=== PATIENT | male | born 1980 | race Caucasian/White ===

== ENCOUNTER 2023-10-25 05:08 | Emergency (ER) | payer OTHER, SELFPAY ==
--- NOTE | 2023-10-25 | ECG_ITS ---
Test Reason : CHEST PAIN Blood Pressure : / mmHG Vent. Rate : 067 BPM Atrial Rate : 067 BPM P-R Int : 136 ms QRS Dur : 084 ms QT Int : 386 ms P-R-T Axes : 073 069 041 degrees QTc Int : 407 ms Normal sinus rhythm with sinus arrhythmia Normal ECG When compared with ECG of 01-SEP-2016 22:35, No significant change was found Referred By: Generic ED Physician Electronically Signed By:Conner Sharpe
--- NOTE | ~2023-10-25 | XR_ITS ---
EXAMINATION: XR CHEST CLINICAL INFORMATION: Chest injury. Pain. COMPARISON: 09/01/2016. TECHNIQUE: Frontal view of the chest was obtained. FINDINGS: No significant abnormality is noted involving the heart, lungs, mediastinum, bony thorax or soft tissues. XR/XR chest 1V IMPRESSION: Unremarkable examination.
[2023-10-25 05:23] VITALS: BP 122/78; PULSE 68; RESP 18; TEMP 36.7; O2SAT 99; BMI 25.8
[2023-10-25 05:29] LABS: Basophils Percent Auto 0.5 % (0-2); Eosinophils Absolute Auto 0.1 X10*3/uL (0.0-0.4); Eosinophils Percent Auto 2.4 % (0-4); Hematocrit 44.8 % (42.0-52.0); Hemoglobin 15.5 g/dl (14.0-18.0); Imm Gran Abs Auto 0.01 X10*3/uL (0.00-0.03); Imm Gran Pct Auto 0.2 % (0.0-0.4); Lymphocytes Percent Auto 34.9 % (20-40); MANUAL DIFF FLAG NO; Mean Corpuscular HGB Conc 34.6 g/dl (31.0-36.0); Mean Corpuscular Hemoglobin 31.8 pg (27.0-33.0); Mean Platelet Volume 9.6 fL (9.4-12.4); Monocytes Absolute Auto 0.7 X10*3/uL (0.1-1.2); Monocytes Percent Auto 11.7 % (2-11); Neutrophils Absolute Auto 2.9 x10*3/uL (2.0-8.3); Neutrophils Percent Auto 50.3 % (45-73); Platelet Count 217 X10*3/uL (160-400); Red Blood Count 4.87 X10*6/uL (4.60-5.80); Red Cell Distribution Width 12.3 % (11.0-16.0); White Blood Count 5.7 X10*3/uL (4.8-10.8)
[2023-10-25 05:45] LABS: Alanine Aminotransferase 33 U/L (0-40); Albumin Level 4.2 g/dL (3.5-5.0); Alkaline Phosphatase 44 U/L (39-117); Anion Gap 13 (12-20); Aspartate Amino Transferase 23 U/L (5-37); Bilirubin Total 0.6 mg/dL (0.0-1.0); Blood Urea Nitrogen 12 mg/dL (9-16); Calcium 10.4 mg/dL (8.4-10.2); Carbon Dioxide 26 mmol/L (22-29); Chloride 107 mmol/L (96-108); Creatinine Clr Calc Pharmacy 109.7; Estimated Glomerular Filt Rate > 60; Glucose Random 123 mg/dL (60-115); Potassium 4.1 mmol/L (3.3-5.1); Sodium 142 mmol/L (135-145); Total Protein 6.9 g/dL (6.5-8.0)
[2023-10-25 06:01] LABS: Troponin-I High Sensitivity < 2.7 ng/L (<3.5-35.0)
--- NOTE | 2023-10-25 06:47 | ED_ITS ---
HPI - Chest Pain General Chief Complaint: Chest Pain Stated Complaint: Chest pain from being hit by hockey puck Time Seen by Provider: 10/25/23 06:47 Source: patient Mode of arrival: ambulatory Limitations: no limitations History of Present Illness HPI narrative: Patient is a 43 year old assigned male at with no reported medical history presenting to the emergency department today with right sided chest pain after being struck with a hockey puck. 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 Patient states that he continues to have pain on that side that worsens with movement and breathing. Patient denies any dizziness, lightheadedness, abdominal pain, nausea, vomiting, fever, chills, blurry vision, double vision, loss of vision, difficulty breathing, shortness of breath, back pain, night sweats, pain with urination, increased urinary frequency, increased urinary urgency, blood in his urine or stool, syncope or a near syncopal episode, recent trauma or falls, bowel incontinence, bladder incontinence, bowel retention, bladder retention, or any other complaints at this time. Related Data Allergies Allergy/AdvReac Type Severity Reaction Status Date / Time No Known Allergies Allergy Verified 10/25/23 05:27 [No Known Allergies*] Review of Systems 2 Constitutional: Constitutional: Reports no additional constitutional complaints, Denies chills, Denies fever(s) and Denies night sweats Eyes: Eyes: Reports no additional eye complaints, Denies blurry vision, Denies change in vision, Denies diplopia, Denies eye discharge, Denies loss of vision and Denies eye pain ENT: Denies dizziness Cardiovascular: Cardiovascular: Reports no additional cardiovascular complaints, Reports chest pain, Denies lightheadedness, Denies Loss of Consciousness and Denies dyspnea Respiratory: Respiratory: Reports no additional respiratory complaints and Denies dyspnea Gastrointestinal: Gastrointestinal: Reports no additional gastrointestinal complaints, Denies abdominal pain, Denies melena, Denies hematochezia, Denies change in bowel habits and Denies change in stool character Genitourinary: Genitourinary: Reports no additional male genitourinary complaints, Denies hematuria, Denies oliguria, Denies difficulty urinating, Denies dysuria, Denies urinary frequency, Denies urinary hesitancy, Denies urinary incontinence and Denies urinary urgency Musculoskeletal: Musculoskeletal: Reports no additional musculoskeletal complaints, Denies numbness and Denies tingling Neurologic: Denies dizziness, Denies loss of vision, Denies numbness and Denies tingling Psychiatric: Psychiatric: Reports no additional psychiatric complaints Endocrine: Endocrine: Reports no additional endocrine complaints Hematologic/Lymphatic: Hematologic/Lymphatic: Reports no additional hematologic/lymphatic complaints Allergic/Immunologic: Allergic/Immunologic: Reports no additional allergic/immunologic complaints PMFSH Past Medical History Attestation statement: The following information was validated with the patient. Source: old records reviewed and nursing notes reviewed Social History Social History Advance Directives: No Advance Directives Information Provided: No Physical Exam 2 Vital Signs: Vital Signs: Last Vital Signs Temp 98.1 F 10/25/23 07:30 Pulse 68 10/25/23 07:30 Resp 18 10/25/23 07:30 BP 122/78 10/25/23 07:30 Pulse Ox 99 10/25/23 07:30 O2 Del Method Room Air 10/25/23 07:30 BMI result Body Mass Index 25.8 Const: General: cooperative, no acute distress, alert and awake Nutritional Appearance: well nourished Orientation/consciousness: patient oriented x3 Limitations: no limitations HEENT: Head: Yes normal to inspection and Yes atraumatic Ears: hearing grossly normal bilaterally and external ears normal General nose exam: Normal external nose present, no nasal discharge noted and no epistaxis Face and sinus: Yes normal facial exam, No abrasion and No laceration Mouth: Normal oral and palatal mucosa present, no drooling and no muffled voice Eyes: General: appearance normal, both eyes and all related structures P eriorbital: periorbital findings normal Eyelids: Yes eyelids normal C onjunctivae: conjunctivae normal Pupils: Equal, round and reactive pupils present EOM: EOMs intact bilaterally Neck: Neck: Yes normal visual inspection, Yes full ROM and Yes no lymphadenopathy Chest: Chest palpation & inspection: normal inspection of the chest Resp: Effort & Inspection: normal respiratory effort and able to speak in complete sentences GI: Inspection: Yes normal to inspection Neuro: General: patient oriented x3 and moves all extremities Cranial nerves: Yes Equal, round and reactive pupils present Cognition (Neuro): n ormal cognition Motor exam (neuro): 5/5 motor strength present throughout Sensory Exam: Normal double simultaneous stimulation for sensation C oordination: [id number] test normal Extrem: General: Yes normal to inspection, Yes full ROM and Yes capillary refill normal Psych: Appearance: grossly normal Mental Status: mental status grossly normal Affect: normal affect Attitude: cooperative Thought process: N ormal thought process present Thought content: Normal thought content present Insight: Good insight present (Psych) Medical Decision Making Medical Decision Making [facility] Narrative: Patient is a 43 year old assigned male at with no reported medical history presenting to the emergency department today with right chest pain. Patient's physical exam was unremarkable. Patient's blood work was unremarkable. Patient's chest x-ray showed no acute process. Patient's EKG was unremarkable. I explained my physical exam findings as well as all test results to the patient. I answered all questions asked by the patient. I stressed the importance of the patient taking his medication as prescribed. I stressed the importance of the patient following up with his primary care provider. I stressed the importance of the patient returning to the emergency department immediately if his symptoms were to worsen or if he were to develop any dizziness, shortness of breath, difficulty breathing, chest pain, blurry vision, loss of vision, nausea, vomiting, abdominal pain, fever, chills, back pain, or any other complaints. Patient verbalized agreement and understanding with this treatment plan and discharge. Differential Diagnosis Differential Diagnoses: The differential diagnosis associated with the presentation includes Chest contusion Chest wall pain Chest pain Admission/Observation Consideration of admission/observation: Escalation of care including admission/observation considered Patient would have been admitted to the hospital had his work up had any findings where hospital admission was appropriate and his clinical presentation warranted hospital admission. Lab Data [facility] Lab Attestation statement: I reviewed the patient's lab results. My interpretation of these results are in the [facility] Rationale portion of this note. 10/25/23 05:25 10/25/23 05:25 Labs: Lab Results 10/25/23 Range/Units 05:25 WBC 5.7 (4.8-10.8) X10*3/uL RBC 4.87 (4.60-5.80) X10*6/uL Hgb 15.5 (14.0-18.0) g/dl Hct 44.8 (42.0-52.0) % MCV 92.0 (80.0-98.0) fL MCH 31.8 (27.0-33.0) pg MCHC 34.6 (31.0-36.0) g/dl RDW 12.3 (11.0-16.0) % Plt Count 217 (160-400) X10*3/uL MPV 9.6 (9.4-12.4) fL Immature Gran % (Auto) 0.2 (0.0-0.4) % Neut % (Auto) 50.3 (45-73) % Lymph % (Auto) 34.9 (20-40) % Turner % (Auto) 11.7 H (2-11) % Eos % (Auto) 2.4 (0-4) % Baso % (Auto) 0.5 (0-2) % Lymph # (Auto) 2.0 (1.2-4.9) X10*3/uL Turner # (Auto) 0.7 (0.1-1.2) X10*3/uL Eos # (Auto) 0.1 (0.0-0.4) X10*3/uL Baso # (Auto) 0.0 (0.0-0.2) X10*3/uL Abs Immat Gran (auto) 0.01 (0.00-0.03) X10*3/uL Absolute Neuts (auto) 2.9 (2.0-8.3) x10*3/uL Absolute Nucleated RBC 0.000 (0.0-0.012) X10*3/uL Nucleated RBC % (auto) 0.0 (0.0-0.2) /100WBC Sodium 142 (135-145) mmol/L Potassium 4.1 (3.3-5.1) mmol/L Chloride 107 (96-108) mmol/L Carbon Dioxide 26 (22-29) mmol/L Anion Gap 13 (12-20) BUN 12 (9-16) mg/dL Creatinine 0.84 (0.5-1.4) mg/dL Estim Creat Clear Calc 109.7 Estimated GFR > 60 Random Glucose 123 H (60-115) mg/dL Calcium 10.4 H (8.4-10.2) mg/dL Total Bilirubin 0.6 (0.0-1.0) mg/dL AST 23 (5-37) U/L ALT 33 (0-40) U/L Alkaline Phosphatase 44 (39-117) U/L Troponin I High Sens < 2.7 (<3.5-35.0) ng/L Total Protein 6.9 (6.5-8.0) g/dL Albumin 4.2 (3.5-5.0) g/dL Independent Interpretation I performed an independent interpretation of an: EKG and Plain X-Ray Interpretation: My interpretation is in agreement with the radiologist's impression of this imaging study. - EXAMINATION: XR CHEST CLINICAL INFORMATION: Chest injury. Pain. COMPARISON: 09/01/2016. TECHNIQUE: Frontal view of the chest was obtained. FINDINGS: No significant abnormality is noted involving the heart, lungs, mediastinum, bony thorax or soft tissues. XR/XR chest 1V IMPRESSION: Unremarkable examination. Dictated By: Walter Rangel Signed By: Electronically signed by Walter Rangel 10/25/23 0541 - Vent. Rate: 067 BPM Atrial Rate: 067 BPM P-R Int: 136 ms QRS Dur: 084 ms QT Int: 386 ms P-R-T Axes: 073 069 041 degrees QTc Int: 407 ms Normal sinus rhythm with sinus arrhythmia Normal ECG When compared with ECG of 01-SEP-2016 22:35, No significant change was found DD/ [id number] Radiology Impression Discussion of test interpretation with radiology: I have reviewed the radiologist's reading. Discharge Plan Discharge Clinical Impression: Chest wall contusion Patient Disposition: Home, Self-Care Instructions: Contusion in Adults (ED) Additional Instructions: Follow up with your primary care provider. Return to the emergency department immediately if your symptoms worsen or if you develop any dizziness, shortness of breath, difficulty breathing, chest pain, blurry vision, loss of vision, nausea, vomiting, abdominal pain, fever, chills, back pain, or any other complaints. Referrals: [facility] [Provider Group] (Call to establish and follow up with a primary care provider. If you already have a primary care provider, please follow up with them.) [facility] [place] [facility] [Provider Group] [facility] [Provider Group] Stand Alone Forms: Work/School Release Interventions: ED Discharge Assessment Last Done: 10/25/23 07:30 Discharge Date/Time: 10/25/23 07:32 Print Language: Hebrew
[2023-10-25 07:30] VITALS: BP 122/78; PULSE 68; RESP 18; TEMP 36.7; O2SAT 99
== END 2023-10-25 07:32 | disposition home or self-care (01) ==
PROVIDERS: Emergency Provider Emergency Medicine
DX: S20.211A Contusion of right front wall of thorax, initial encounter (principal); W21.220A Struck by ice hockey puck, initial encounter; Y93.89 Activity, other specified; Y92.9 Unspecified place or not applicable; Y99.9 Unspecified external cause status; R07.9 Chest pain, unspecified
CPT/HCPCS: 36415; 71045; 80053; 84484; 85025; 93005; 99283

== ENCOUNTER → 2023-10-25 05:17 | Outpatient (BNV) | payer OTHER, SELFPAY | PROVIDERS: Emergency Provider Emergency Medicine; Visit Provider Internal Medicine Cardiovascular Disease | DX: R07.9 Chest pain, unspecified (principal) | CPT/HCPCS: 93010 ==

== ENCOUNTER 2024-09-03 17:21 | Emergency (ER) | payer MEDICAID, SELFPAY ==
--- NOTE | ~2024-09-03 | CT_ITS ---
CLINICAL HISTORY: headache CT head without contrast Comparison: CT/SR - BRAIN WO IV CONTRAST 55000 - 08/01/18 18:39 EST Findings: No intra-axial mass, midline shift, hydrocephalus, or acute hemorrhage. No significant atrophy-like change or white matter disease. The visualized paranasal sinuses and mastoid air cells are normal. The orbits are unremarkable. No skull fracture. IMPRESSION: 1. No acute intracranial findings. This document has been electronically signed by: Neftaly Hardy MD on 09/03/2024 19:19:56
--- NOTE | ~2024-09-03 | CT_ITS ---
CLINICAL HISTORY: right arm numbness CTA HEAD WITH CONTRAST AND 3D POST PROCESSING CTA NECK WITH CONTRAST AND 3D POST PROCESSING COMPARISON: CT brain 09/03/2024. FINDINGS: CTA NECK: Sagittal and coronal MIP 3D reconstruction images were performed.There is no significant stenosis, occlusion, dissection, aneurysm, or vascular malformation. There is no active bleeding. There is minimal soft plaque in the proximal right internal carotid artery, without significant stenosis. Common carotid arteries, internal carotid arteries, external carotid arteries, and vertebral arteries are otherwise unremarkable. Multilevel endplate degenerative changes are noted within the cervical spine. CTA HEAD: Sagittal and coronal MIP 3D reconstruction images were performed. Tiny 1-2 mm outpouching is noted arising from the proximal left anterior cerebral artery on axial image 373 of series 6. Differential considerations include a vessel infundibulum or alternatively a tiny aneurysm. No evidence of active bleeding. There is no significant stenosis, occlusion, dissection, or vascular malformation. There is no active bleeding. Terminal internal carotid arteries, middle cerebral arteries, anterior cerebral arteries, basilar artery, and posterior cerebral arteries are otherwise unremarkable. No evidence of dural venous sinus thrombosis. IMPRESSION: 1. CTA neck and CTA head demonstrate no significant stenosis, occlusion, dissection, or vascular malformation. 2. The CTA head demonstrates a tiny 1-2 mm outpouching arising from the proximal left anterior cerebral artery. Differential considerations include a vessel infundibulum or alternatively a tiny aneurysm. Assessment is limited as there is opacification of arterial and venous structures on this exam. Outpatient follow-up is advised. This document has been electronically signed by: Noel Butler M.D. on 09/03/2024 23:47:35
[2024-09-03 17:25] VITALS: BP 114/88; PULSE 82; RESP 19; TEMP 36.6; O2SAT 99; BMI 24.0
--- NOTE | 2024-09-03 17:31 | ED_ITS ---
HPI - General Adult General Chief complaint: General Medical Stated complaint: Right side face / arm numb Time Seen by Provider: 09/03/24 21:01 Source: patient, RN notes reviewed and old records reviewed Mode of arrival: ambulatory Limitations: no limitations History of Present Illness ED Provider: Monalisa MCCALL narrative: 44-year-old male past medical history significant for hypothyroidism presents for evaluation of numbness to his right arm. Patient reports that about 24 hours ago after finishing up a hockey game he had numbness and tingling starting in his fingertips radiating up to his right shoulder and then to with the right side of his face These symptoms lasted about 15-20 seconds before resolving completely He reports that he has had a headache for the last 3 days in the back of his head on both sides The headache worsened after the numbness episode He currently has no symptoms including numbness, tingling or headaches He was a smoker He has no other risk factors for TIA/CVA He did not have any weakness, facial droop or difficulty speaking Related Data Allergies Allergy/AdvReac Type Severity Reaction Status Date / Time No Known Allergies Allergy Verified 09/03/24 17:30 [No Known Allergies*] Review of Systems 2 Constitutional: Constitutional: Denies body ache(s), Denies chills, Denies fever(s), Denies frequent falls and Reports headache(s) Eyes: Eyes: Denies blurry vision ENT: Denies dysphagia, Denies vertigo and Reports headache(s) Cardiovascular: Cardiovascular: Denies chest pain and Denies dyspnea Respiratory: Respiratory: Denies cough and Denies dyspnea Gastrointestinal: Gastrointestinal: Denies abdominal pain and Denies dysphagia Musculoskeletal: Musculoskeletal: Denies back pain, Denies arthralgias, Denies joint swelling, Denies limited range of motion, Reports numbness, Denies radiating pain into limb, Denies stiffness and Reports tingling Integumentary/Breasts: Skin/Breast: Denies rash Neurologic: Denies vertigo, Denies frequent falls, Reports headache(s), Reports numbness and Reports tingling PMFSH Social History Social History Advance Directives: No Advance Directives Information Provided: No Physical Exam ED Vital Signs: Vital Signs - 24 hr 09/03/24 17:25 Temperature 98 F Pulse Rate 82 Respiratory Rate 19 Blood Pressure 114/88 Pulse Oximetry 99 Oxygen Delivery Method Room Air BMI result Body Mass Index 24.0 Const General: healthy appearing, comfortable, no acute distress, alert and awake Nutritional Appearance: well nourished Orientation/consciousness: patient oriented x3 HENMT Head: Yes normocephalic and Yes atraumatic Eyes Eyelids: Yes eyelids normal Conjunctivae: conjunctivae normal Sclerae: sclerae normal Corneas: corneas normal Pupils: Equal, round and reactive pupils present EOM: EOMs intact bilaterally Neck Neck: Yes full ROM Resp Effort & Inspection: normal respiratory effort, able to speak in complete sentences and not labored Skin General skin exam: elasticity normal Neuro General: patient oriented x3 Cranial nerves: Yes CN's II-XII intact bilaterally, Yes Equal, round and reactive pupils present and Yes Bilaterally intact EOM present Cognition (Neuro): normal cognition Gait exam (Neuro): Normal gait present Motor exam (neuro): 5/5 motor strength present throughout, Pronator motor function not present, no tremor noted, no asterixis, Motor fasciculations not present and Normal motor muscle tone present throughout Coordination: [id number] test normal Extrem Other: Moving all extremities well without any obvious deformities Medications Administered Discontinued Medications Generic Name Dose Route Start Last Admin Trade Name Freq PRN Reason Stop Dose Admin Iohexol 75 ml 09/03/24 22:10 09/03/24 22:10 Iohexol 350 Mg/Ml 100 Ml Infus..Btl IV 09/03/24 22:11 75 ml ONCE ONE Administration Medical Decision Making Medical Decision Making [facility] Narrative: 44-year-old male with past medical history significant for hypothyroidism presents for evaluation of of numbness to his right arm and right side of the face that lasted about 20 seconds last night, 24 hours ago. His only risk factors for CVA is a smoking history. He is quite healthy. He currently has no symptoms and has not had any symptoms today. He did not have any facial droop, dysarthria, focal weakness. I have a fairly low suspicion for CVA/TIA as his symptoms were right-sided to both the face and extremities. CT scan of the brain was unremarkable. Discussed with the attending, Dr. Rouse who recommends CT angiography of the head and neck to evaluate for stenosis or occlusion. The patient does have a history of rotator cuff injury Differential Diagnosis Differential Diagnoses: The differential diagnosis associated with the presentation includes Neuropathy Paresthesias TIA CVA Large vessel occlusion Admission/Observation Consideration of admission/observation: Escalation of care including admission/observation considered Patient was considered for admission due to right arm paresthesias. However his symptoms are not consistent with the findings on imaging. I did discuss with the hospitalist who agrees with myself and radiology that this patient can follow up as an outpatient Lab Data [facility] Lab Attestation statement: I reviewed the patient's lab results. No leukocytosis or anemia. Normal platelet count. No significant electrolyte abnormalities 09/03/24 17:54 09/03/24 17:54 Labs: Lab Results 09/03/24 Range/Units 17:54 WBC 7.6 (4.8-10.8) X10*3/uL RBC 4.80 (4.60-5.80) X10*6/uL Hgb 15.4 (14.0-18.0) g/dl Hct 43.8 (42.0-52.0) % MCV 91.3 (80.0-98.0) fL MCH 32.1 (27.0-33.0) pg MCHC 35.2 (31.0-36.0) g/dl RDW 12.8 (11.0-16.0) % Plt Count 252 (160-400) X10*3/uL MPV 9.2 L (9.4-12.4) fL Immature Gran % (Auto) 0.3 (0.0-0.4) % Neut % (Auto) 54.4 (45-73) % Lymph % (Auto) 35.0 (20-40) % Phillips % (Auto) 8.1 (2-11) % Eos % (Auto) 1.8 (0-4) % Baso % (Auto) 0.4 (0-2) % Lymph # (Auto) 2.7 (1.2-4.9) X10*3/uL Phillips # (Auto) 0.6 (0.1-1.2) X10*3/uL Eos # (Auto) 0.1 (0.0-0.4) X10*3/uL Baso # (Auto) 0.0 (0.0-0.2) X10*3/uL Abs Immat Gran (auto) 0.02 (0.00-0.03) X10*3/uL Absolute Neuts (auto) 4.1 (2.0-8.3) x10*3/uL Absolute Nucleated RBC 0.000 (0.0-0.012) X10*3/uL Nucleated RBC % (auto) 0.0 (0.0-0.2) /100WBC Sodium 141 (135-145) mmol/L Potassium 4.4 (3.3-5.1) mmol/L Chloride 110 H (96-108) mmol/L Carbon Dioxide 25 (22-29) mmol/L Anion Gap 10 L (12-20) BUN 13 (9-16) mg/dL Creatinine 0.83 (0.5-1.4) mg/dL Estim Creat Clear Calc 109.8 Estimated GFR > 60 Random Glucose 95 (60-115) mg/dL Calcium 9.2 D (8.4-10.2) mg/dL Magnesium 2.2 (1.6-2.6) mg/dL Total Bilirubin 0.2 (0.0-1.0) mg/dL Direct Bilirubin < 0.2 (0.0-0.5) mg/dL AST 24 (5-37) U/L ALT 26 (0-40) U/L Alkaline Phosphatase 47 (39-117) U/L Troponin I High Sens < 2.7 (<3.5-35.0) ng/L Total Protein 7.2 (6.5-8.0) g/dL Albumin 4.2 (3.5-5.0) g/dL Influenza Type A (PCR) NEGATIVE (Negative) Influenza Type B (PCR) NEGATIVE (Negative) RSV RNA Qual (PCR) NEGATIVE (Negative) SARS-CoV-2 RNA (RT-PCR) NEGATIVE (Negative) Radiology Impression Discussion of test interpretation with radiology: I have reviewed the radiologist's reading. Radiologist Impression: IMPRESSION: 1. CTA neck and CTA head demonstrate no significant stenosis, occlusion, dissection, or vascular malformation. 2. The CTA head demonstrates a tiny 1-2 mm outpouching arising from the proximal left anterior cerebral artery. Differential considerations include a vessel infundibulum or alternatively a tiny aneurysm. Assessment is limited as there is opacification of arterial and venous structures on this exam. Outpatient follow-up is advised. This document has been electronically signed by: Noel Butler M.D. on 09/03/2024 23:47:35 Tests considered The following testing was considered but not selected: considered MRI brain Discharge Plan Discharge Clinical Impression: Arm paresthesia, right Patient Disposition: Home, Self-Care Additional Instructions: Your workup in the ER today was reassuring. You did have an incidental finding on your CT angiography as we discussed It is important that you follow-up with Neurology at the number provided, call tomorrow to schedule an appointment Return to the ER for new or worsening symptoms IMPRESSION: 1. CTA neck and CTA head demonstrate no significant stenosis, occlusion, dissection, or vascular malformation. 2. The CTA head demonstrates a tiny 1-2 mm outpouching arising from the proximal left anterior cerebral artery. Differential considerations include a vessel infundibulum or alternatively a tiny aneurysm. Assessment is limited as there is opacification of arterial and venous structures on this exam. Outpatient follow-up is advised. This document has been electronically signed by: Noel Butler M.D. on 09/03/2024 23:47:35 Referrals: Hasmukh Christiansen MD [Physician] - (abnormal CTA right arm parasthesias) Print Language: Croatian
--- NOTE | 2024-09-03 17:31 | ECG_ITS ---
Test Reason : CP Blood Pressure : */* mmHG Vent. Rate : 70 BPM Atrial Rate : 70 BPM P-R Int : 146 ms QRS Dur : 84 ms QT Int : 386 ms P-R-T Axes : 54 64 40 degrees QTcB Int : 416 ms Normal sinus rhythm with sinus arrhythmia Normal ECG When compared with ECG of 25-Oct-2023 05:17, No significant change was found Referred By: Lupis Lee Electronically Signed By: KINJAL TAVAREZ
[2024-09-03 18:00] LABS: MANUAL DIFF FLAG NO
[2024-09-03 18:01] LABS: Basophils Percent Auto 0.4 % (0-2); Eosinophils Absolute Auto 0.1 X10*3/uL (0.0-0.4); Eosinophils Percent Auto 1.8 % (0-4); Hematocrit 43.8 % (42.0-52.0); Hemoglobin 15.4 g/dl (14.0-18.0); Imm Gran Abs Auto 0.02 X10*3/uL (0.00-0.03); Imm Gran Pct Auto 0.3 % (0.0-0.4); Lymphocytes Absolute Auto 2.7 X10*3/uL (1.2-4.9); Mean Corpuscular HGB Conc 35.2 g/dl (31.0-36.0); Mean Corpuscular Hemoglobin 32.1 pg (27.0-33.0); Mean Corpuscular Volume 91.3 fL (80.0-98.0); Mean Platelet Volume 9.2 fL (9.4-12.4); Monocytes Absolute Auto 0.6 X10*3/uL (0.1-1.2); Monocytes Percent Auto 8.1 % (2-11); Neutrophils Absolute Auto 4.1 x10*3/uL (2.0-8.3); Neutrophils Percent Auto 54.4 % (45-73); Platelet Count 252 X10*3/uL (160-400); Red Cell Distribution Width 12.8 % (11.0-16.0); White Blood Count 7.6 X10*3/uL (4.8-10.8)
[2024-09-03 18:15] LABS: Alanine Aminotransferase 26 U/L (0-40); Albumin Level 4.2 g/dL (3.5-5.0); Alkaline Phosphatase 47 U/L (39-117); Anion Gap 10 (12-20); Aspartate Amino Transferase 24 U/L (5-37); Bilirubin Direct < 0.2 mg/dL (0.0-0.5); Bilirubin Total 0.2 mg/dL (0.0-1.0); Blood Urea Nitrogen 13 mg/dL (9-16); Calcium 9.2 mg/dL (8.4-10.2); Carbon Dioxide 25 mmol/L (22-29); Chloride 110 mmol/L (96-108); Creatinine Clr Calc Pharmacy 109.8; Estimated Glomerular Filt Rate > 60; Glucose Random 95 mg/dL (60-115); Magnesium 2.2 mg/dL (1.6-2.6); Potassium 4.4 mmol/L (3.3-5.1); Sodium 141 mmol/L (135-145); Total Protein 7.2 g/dL (6.5-8.0)
[2024-09-03 18:27] LABS: Troponin-I High Sensitivity < 2.7 ng/L (<3.5-35.0)
[2024-09-03 18:38] LABS: Influenza A PCR NEGATIVE (Negative); Influenza B PCR NEGATIVE (Negative); Resp Syncy Virus RNA Qual PCR NEGATIVE (Negative); SARS COV2 PCR INHOUSE NEGATIVE (Negative)
--- OUTSIDE RECORDS SUMMARY | 2024-09-03 21:00 | XMS_ITS | Continuity of Care Document ---
Author Organization [facility] Address [address] [place] [address]- Care Team Providers Care Radiology Nurse Name Role Phone Garrick Wei MD Primary Care Physician [id number] Date(s): 07/16/24 - 08/15/24 [facility] [address] [place] [address]- Attending Physician: Juan Manuel Barragan Admitting Physician: Juan Manuel Barragan Referring Physician: Juan Manuel Barragan Encounter Type: Triage Allergies, Adverse Reactions, Alerts No Known Allergies Immunizations Given and Recorded Vaccine Date Status Refusal Reason tetanus/diphtheria/pertussis, acel(Tdap) 1 04/24/19 Given 1Result Comment: [facility]: [id number] Medications efinaconazole 10% topical solution 1 application, Topically, Daily, Apply daily for 48 weeks, # 8 mL, 3 Refills, Maintenance, 04/24/19 2:22:24 PM EDT, Solution, [id number], 1 application Topically Daily,Instr:Apply daily for 48weeks Start Date: 04/24/19 Status: Ordered Quantity: 8.0 Unit: mL Repeat number: 4 Physical therapy evaluation Physical therapy evaluation, See Instructions, # 1 each, Refills 0, Tot. Refills 0, Maintenance, Physical therapy evaluation for right sided low back pain with sciatica, 03/05/24 9:54:00 AM EDT, Supply Start Date: 03/05/24 Status: Ordered Quantity: 1.0 Unit: each Repeat number: 1 Indication: Lumbago with sciatica, right side Tirosint 112 mcg (0.112 mg) oral capsule 1 capsule, By Mouth, Daily, DIRECTED., # 30 capsule, 0 Refills, Maintenance, 05/08/24 1:49:00 PMEDT, [id number], 174, cm, 03/05/24 9:39:00 EDT, Height, 74.8, kg, 03/05/24 9:39:00 EDT, DryWeight Start Date: 05/08/24 Status: Ordered Quantity: 30.0 Unit: capsule Repeat number: 1 Tirosint 137 mcg (0.137 mg) oral capsule 2 capsule = 274 mcg, By Mouth, Daily, # 60 capsule, 2 Refills, Maintenance, 05/09/24 8:41:00 AM EDT, Capsule, [id number], Partial fill upon patient request if the prescription is for a schedule II opioid drug., 174, cm, 03/05/24 9:39:00 EDT, Height, 74.8, kg, 03/05/24 9:39:00 EDT, Dry Weight Start Date: 05/09/24 Status: Ordered Quantity: 60.0 Unit: capsule Repeat number: 3 Problem List Condition Confirmation Course Effective Dates Status H ealth Status Informant Chronic back pain Confirmed Active 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 Hypothyroidism Confirmed Active Onychomycosis Confirmed Active Syncopal episodes Confirmed Active Tobacco abuse Confirmed Active Social History Social History Type Response Smoking Status 10 or more cigarette s (1/2 pack or more)/day in last 30 days; Other: 15-20 cigarettes per day; Number of years: 27; Started at age: 14; entered on: 12/03/21 Sex Sex Representation Male (finding) Patient Care team information Care Team Personnel Name: Garrick Wei MD Position: [facility] Physician - Primary Care Member Role: PCP Address: [address] [place] [address]- Telecom: Care Team Related Persons Name: JOSE MONET Insurance Providers Guarantor name: MONTY TOSCANO Health Plan Information #: 1 Payer: [employer] Member Number: NA Policy Number: NA Group Number: NA
--- OUTSIDE RECORDS SUMMARY | 2024-09-03 21:00 | XMS_ITS | Clinical Summary ---
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 Name Role Phone No, Pcp (Do Not Change Name) Primary Care Provid er Unavailable Allergies No known active allergies Medications No known medications Social History Tobacco Use Types Packs/Day Years Used Date Smoking Tobacco: Every Day Cigarettes Smokeless Tobacco: Never Alcohol Use Standard Drinks/Week Comments Yes 5 (1 standard drink = 0.6 oz pur e alcohol) ocassionally Sex and Gender Information Value Date Recorded Sex Assigned at Not on file Legal Sex Male 2:37 AM EST Gender Identity Not on file Sexual Orientation Not on file Last Filed Vital Signs Vital Sign Reading Time Taken Comments Blood Pressure 137/92 08/26/2018 4:06 AM EST Pulse 99 08/26/2018 4:06 AM EST Temperature 37.1 ??C (98.7 ??F) 08/26/2018 4:06 AM ES T Respiratory Rate 20 08/26/2018 4:06 AM EST Oxygen Saturation 97% 08/26/2018 4:06 AM EST Inhaled Oxygen Concentration - - Weight 76.1 kg (167 lb 12.3 oz) 08/26/2018 2:53 AM EST Height 172.7 cm (5' 8 ) 08/26/2018 2:53 AM EST Body Mass Index 25.51 08/26/2018 2:53 AM EST Plan of Treatment Health Maintenance Due Date Last Done Comments HIV screening 1993 Hepatitis C screening 1998 Tetanus adult (Td q 10,TDAP once) 2000 Lipid disorder screening 2020 Influenza vaccine 02/16/2024 Covid-19 vaccine series (2023- season) 2024 RSV Discussion (1 - 1-dose 7 5+ series) 2055 Meningococcal Vaccine Aged Out No zachary kelechi eligible based on patient's age to complete this topic Pneumococcal Vaccine (2 - 49 years) Aged Out No longer eligible based on patient's age to complete this topic Care Teams Weapons Electrical Engineering Officer Relationship Specialty Start Date End Date No, Pcp (Do Not Change Name) PCP - General 08/26/18
--- OUTSIDE RECORDS SUMMARY | 2024-09-03 21:00 | XMS_ITS | Continuity of Care Document ---
Author Organization [facility] Address [address] [place] [address]- Care Team Providers Care Health Plan Specialist Name Role Phone Garrick Wei MD Primary Care Physician [phone] Encounter [facility] [id number] Date(s): 07/16/24 - 08/15/[address] [facility] [address] [place] [address]- Attending Physician: Edwin DOWNEY, Mira Jane Referring Physician: Garrick Wei MD Encounter Type: Pre Office Visit Allergies, Adverse Reactions, Alerts No Known Allergies Immunizations Given and Recorded Vaccine Date Status Refusal Reason tetanus/diphtheria/pertussis, acel(Tdap) 1 04/24/19 Given 1Result Comment: [facility]: [id number] Medications efinaconazole 10% topical solution 1 application, Topically, Daily, Apply daily for 48 weeks, # 8 mL, 3 Refills, Maintenance, 04/24/19 2:22:24 PM EDT, Solution, [id number], 1 application Topically Daily,Instr:Apply daily for 48weeks [...] Team Personnel Name: Garrick Wei MD Position: [facility] Physician - Primary Care Member Role: PCP Address: [address] [place] [address]- Telecom: Care Team Related Persons Name: JOSE MONET Insurance Providers Guarantor name: MONTY TOSCANO Health Plan Information #: 1 Payer: S[employer]URANCE Member Number: NA Policy Number: NA Group Number: NA Health Plan Information #: 2 Payer: [facility] Member Number: NA Policy Number: NA Group Number: NA
[2024-09-03] MEDS: iohexoL 350 MG/ML 100 ML INFUS..BTL 75 ML IV (22:10)
[2024-09-04 00:07] VITALS: BP 129/86; PULSE 56; RESP 19; TEMP 36.8; O2SAT 97
[2024-09-04 00:10] VITALS: BP 129/86; PULSE 56; RESP 19; TEMP 36.8; O2SAT 97
== END 2024-09-04 00:11 | disposition home or self-care (01) ==
PROVIDERS: Physician Assistant Medical; Emergency Provider Emergency Medicine
DX: R20.2 Paresthesia of skin (principal); R51.9 Headache, unspecified; R07.89 Other chest pain; I49.8 Other specified cardiac arrhythmias; Z87.891 Personal history of nicotine dependence; Z79.899 Other long term (current) drug therapy; Z03.818 Encounter for observation for suspected exposure to other biological agents ruled out
CPT/HCPCS: 0241U; 70450; 70496; 70498; 80048; 80076; 83735; 84484; 85025; 93005; 99283; 99284; Q9967

== ENCOUNTER → 2024-09-03 17:31 | Outpatient (BNV) | payer MEDICAID, SELFPAY | PROVIDERS: Emergency Provider Emergency Medicine; Visit Provider Internal Medicine | DX: R07.9 Chest pain, unspecified (principal) | CPT/HCPCS: 93010 ==

== ENCOUNTER → 2024-09-03 18:32 | Outpatient (BNV) | payer OTHER, SELFPAY | PROVIDERS: Visit Provider Student in an Organized Health Care Education/Training Program | DX: R51.9 Headache, unspecified (principal) | CPT/HCPCS: 70450 ==